=== PATIENT | female | born 1985 | race Two or more races ===

== ENCOUNTER → 2024-09-10 09:42 | Outpatient (BNVA) | payer SELFPAY | PROVIDERS: Visit Provider Registered Nurse | DX: Z02.79 Encounter for issue of other medical certificate (principal) ==

== ENCOUNTER → 2025-08-21 10:03 | Outpatient (BNVA) | payer SELFPAY | PROVIDERS: Visit Provider Emergency Medicine | DX: Z02.79 Encounter for issue of other medical certificate (principal) ==